=== PATIENT | male | born 1985 | race Caucasian/White ===

== ENCOUNTER → 2017-02-03 | Outpatient (CLI) | payer OTHER ==
[~2017-02-03] MED LIST: ADDERALL 20 MG20 MG PO; MOBIC15 MG PO; ULTRAM50 MG PO; XANAX0.5 MG PO
== END | disposition short-term general hospital (02) ==
LOC: CLORTH 10:10
DX: S83.412A Sprain of medial collateral ligament of left knee, initial encounter (principal); S83.512A Sprain of anterior cruciate ligament of left knee, initial encounter; S83.262A Peripheral tear of lateral meniscus, current injury, left knee, initial encounter

== ENCOUNTER → 2017-03-03 | Outpatient (CLI) | payer OTHER | END | disposition short-term general hospital (02) | LOC: CLORTH 10:03 | DX: S83.282D Other tear of lateral meniscus, current injury, left knee, subsequent encounter (principal) ==

== ENCOUNTER → 2017-03-31 | Outpatient (CLI) | payer OTHER | END | disposition short-term general hospital (02) | LOC: CLORTH 10:16 | DX: S83.512D Sprain of anterior cruciate ligament of left knee, subsequent encounter (principal); S83.282D Other tear of lateral meniscus, current injury, left knee, subsequent encounter; S83.412D Sprain of medial collateral ligament of left knee, subsequent encounter ==

== ENCOUNTER → 2017-05-12 | Outpatient (CLI) | payer OTHER | END | disposition short-term general hospital (02) | LOC: CLORTH 10:41 | DX: Z47.89 Encounter for other orthopedic aftercare (principal); S83.512D Sprain of anterior cruciate ligament of left knee, subsequent encounter; S83.282D Other tear of lateral meniscus, current injury, left knee, subsequent encounter ==